=== PATIENT | male | born 1945 | race African-American/Black ===

== ENCOUNTER 2025-09-17 14:28 | Outpatient (CLI) | payer MEDICARE | END 2025-09-17 14:29 | disposition home or self-care (01) | LOC: CSHCT 14:28 | PROVIDERS: ATTEND Nurse Practitioner Family | DX: C34.91 Malignant neoplasm of unspecified part of right bronchus or lung (principal); Z90.2 Acquired absence of lung [part of] | CPT/HCPCS: 71250 ==